=== PATIENT | male | born 1985 ===

== ENCOUNTER → 2023-06-22 03:11 | Outpatient (CLI) | payer OTHER, SELFPAY ==
--- NOTE | 2023-06-22 | DI.MRI_ITS ---
Exam(s) MR LUMBAR SPINE WO EXAM: MR LUMBAR SPINE WO CLINICAL HISTORY: LUMBAGO W/ SCIATICA , CHRONIC LOW BACK PAIN W/ RADICULOPATHY. TECHNIQUE: Multiplanar multisequence MRI of the Lumbar spine was performed. COMPARISON: There are no plain films available time this MRI interpretation. FINDINGS: Five lumbar vertebrae are presumed. Conus medullaris is at normal level. There is no evidence of conus mass nor subjacent clumping of in trathecal nerve roots to suggest arachnoiditis. The distal thecal sac appears unremarkable.There is no evidence of Tarlov intrasacral cysts nor other significant findings within the sacral canal Bones:There are no fractures nor ominous osseous lesions in the lumbar vertebral bodies and visualize d sacrum. With respect to the individual levels... T12-L1: Unremarkable L1-2: Normal disc height and signal. No disc herniation nor central canal stenosis.No foraminal steno sis L2-3: Normal disc height. No disc herniation nor central canal stenosis.No foraminal stenosis.No face t arthropathy. L3-4: Normal disc height. No disc herniation or central canal stenosis.No foraminal stenosis.No face t arthropathy. L4-5: Normal disc height and signal. There is a lateral right disc herniation at the level of the ri ght lateral recess and exiting right neural foramen. This disc protrusion extends posteriorly 5 mm a nd is 18 mm wide. It occupies the inferior aspect of the exiting right neural foramen but there is s till fat signal surrounding the exiting right nerve root at this level with only mild right-sided for aminal stenosis at this level. There is no foraminal stenosis on the opposite-left side. Central ca nal dimensions are lower normal. Facet joints at this level appear unremarkable. L5-S1: At this level there is some disc space narrowing posteriorly and Modic type 2 sub endplate mar row changes posteriorly. There is a focal small left paracentral disc protrusion, best seen on the s agittal images. This does not significantly indent the thecal sac and the central canal dimensions a re within normal limits at this level. There is no extension into the exiting neural foramina which are nicely patent bilaterally. No significant facet arthropathy. Soft tissues: paraspinal soft tissues appear unremarkable. IMPRESSION: 1. There is a right-sided disc herniation at L4-5 level at the level of the right lateral recess and floor of the exiting right neural foramen, this disc protrusion extending posteriorly 5 millimeters a nd approximately 18 mm wide. Osseous central canal dimensions at this level are within normal limits . There is only mild foraminal stenosis on the right side at this level without significant impingem ent upon the exiting nerve root. The disc herniation at this level is not associated with disc heigh t loss at this time. 2. Smaller disc protrusion evident at L5-S1 level. 3. No significant facet arthropathy evident in the lumbosacral spinal column. DATA REPOSITORY:
== END ==
PROVIDERS: Visit Provider Nurse Practitioner Adult Health
DX: M54.50 Low back pain, unspecified (principal); M54.30 Sciatica, unspecified side
CPT/HCPCS: 72148